=== PATIENT | male | born 1965 | race Caucasian/White ===

== ENCOUNTER 2018-08-04 14:25 | Outpatient (CLI) | payer BC ==
[~2018-08-04] VITALS: Ht 198.1 cm; Wt 136.1 kg
[~2018-08-04 14:25] MED LIST: AMLO5TAB9 PO; ATEN25TA PO; LISI20TA PO; METF-397 PO
== END 2018-08-04 15:30 | disposition home or self-care (01) ==
LOC: PREOP 14:25
PROVIDERS: ATTEND Surgery
DX: Z01.818 Encounter for other preprocedural examination (principal)

== ENCOUNTER 2018-08-10 08:27 | Day surgery (SDC) | payer BC, OTHER ==
[~2018-08-10] VITALS: Ht 198.1 cm; Wt 136.1 kg
[2018-08-10] MEDS ORDERED: NS IV 500 ML 500 ML ONE (08:28)
--- OUTSIDE RECORDS SUMMARY | 2018-08-10 08:29 | XMS REPORT ---
Author Author JAYNE GALLEGOS [facility] Address Unknown Care Team Providers Care Senior Bioinformatics Scientist Name Role Phone JAYNE GALLEGOS Unavailable PROBLEMS Type Condition ICD9-CM Code TUO90-PC Code Onset Dates Condition Status SNOMED Code Assessment Dental examination Z01.20 Mar, Active [id number] ALLERGIES Substance Reaction Event Type Date Status N.K.D.A. Unknown Non Drug Allergy Mar, Unknown SOCIAL HISTORY No smoking Hx information available PLAN OF CARE VITAL SIGNS Blood pressure systolic 124 mmHg 2016-03-28 Blood pressure diastolic 86 mmHg 2016-03-28 MEDICATIONS Medication Instructions Dosage Frequency Start Date End Date Duration Status Lisinopril Active RESULTS No Results PROCEDURES Procedure Date Ordered Related Diagnosis Body Site LTD ORAL EVALUATION - PROBLEM FOCUS Mar 28, 2016 IMMUNIZATIONS No Known Immunizations
[2018-08-10 08:40] VITALS: BP 122/75
[2018-08-10] MEDS ORDERED: NS IV 500 ML 500 ML IV PRN (08:51)
--- NOTE | 2018-08-10 08:52 | History & Physicial ---
History of Present Illness History of Present Illness Reason for visit/HPI to undergo screening colonoscopy. Date of Admission 08/10/18 Date Seen by a Provider: Aug 10, 2018 Time Seen by a Provider: 08:51 I consulted on this patient on 08/10/18 08:51 Attending Physician Shukri Mathews MD Admitting Physician Lacho Garcia MD Consult Allergies and Home Medications Allergies Coded Allergies: No Known Allergies (Unverified Allergy, 02/25/12) Home Medications Amlodipine Besylate 5 Mg Tablet, 5 MG PO DAILY, (Reported) Atenolol 25 Mg Tablet, PO DAILY, (Reported) Metformin HCl 500 Mg Tablet, 500 MG PO DAILY, (Reported) Patient Home Medication List Home Medication List Reviewed: Yes Past Bvfzagk-Bfkkyv-Ukfwqi Hx Patient Social History Marrital Status: Employed/Student: employed Type Used: Cigarettes Recent Foreign Travel: No Contact w/other who traveled: No Recent Hopitalizations: No Seasonal Allergies Seasonal Allergies: No Surgeries Yes (UMBILICAL HERNIA) Vasectomy Respiratory No Cardiovascular Yes Hypertension Neurological No Reproductive System Hx Reproductive Disorders: No Sexually Transmitted Disease: No HIV/AIDS: No Genitourinary No Gastrointestinal No Musculoskeletal No Endocrine History of Endocrine Disorders: Yes (BOARDERLINE-JUST STARTED METFORMIN) Endocrine Disorders: Diabetes, Non-Insulin dep HEENT History of HEENT Disorders: Yes (GLASSES) Loss of Vision: Bilateral Hearing Impairment: Denies Psychosocial History of Psychiatric Problem: No Integumentary History of Skin or Integumenta: No Blood Transfusions History of Blood Disorders: No Adverse Reaction to a Blood Tr: No (N/A) Review of Systems Constitutional: no symptoms reported EENTM: no symptoms reported Respiratory: no symptoms reported Cardiovascular: no symptoms reported Genitourinary: no symptoms reported Musculoskeletal: no symptoms reported Skin: no symptoms reported Psychiatric/Neurological: No Symptoms Reported Physical Exam Vital Signs Capillary Refill : Height, Weight, BMI Height: 6'6.00" Weight: 300lbs. 0.0oz. [id number]; 34.7 BMI Method: General Appearance: No Apparent Distress Respiratory: Lungs Clear Cardiovascular: Regular Rate, Rhythm Gastrointestinal: Non Tender, Soft Rectal: Deferred Neurologic/Psychiatric: Alert, Oriented x3 Skin: Warm/Dry Assessment/Plan Assessment and Plan gentleman in need of screening colonoscopy. Discussed in detail. Admission Diagnosis Admission Status: Other (Outpt Proc) SHUKRI MATHEWS MD Aug 10, 2018 08:52
--- NOTE | 2018-08-10 08:53 | Conscious Sedation/ASA ---
Conscious Sedation Pre-Proced Time 08:53 ASA Score 2 For ASA 3 and 4: Consider anesthesia and medical clearance. Also, for patients with a history of failed moderate sedation consider anesthesia. Airway Lungs Heart ASA score ASA 1: a normal healthy patient ASA 2: a patient with a mild systemic disease (mid diabetes, controlled hypertension, obesity ASA 3: a patient with a severe systemic disease that limits activity (angina , COPD, prior Myocardial infarction) ASA 4: a patient with an incapacitating disease that is a constant threat to life (CHF, renal failure) ASA 5: a moribund patient not expected to survive 24 hrs. (ruptured aneurysm) ASA 6: a declared brain patient whose organs are being harvested. For emergent operations, add the letter E after the classification Mallampati Classification Grade 1 Sedation Plan Discussed options with patient/fam The patient is an appropriate candidate to undergo the planned procedure, sedation, and anesthesia. The patient immediately re-assessed prior to indication. SHUKRI MATHEWS MD Aug 10, 2018 08:53
[2018-08-10] MEDS ORDERED: fentaNYL INJECTION 100 MCG/2 ML AMP IVP ONE (09:00)
[2018-08-10] MEDS ORDERED: MIDAZOLAM 2 MG/2 ML (VERSED) VIAL IVP ONE (09:00)
[2018-08-10] MEDS ORDERED: fentaNYL INJECTION 100 MCG/2 ML AMP ONE (09:03)
[2018-08-10] MEDS ORDERED: MIDAZOLAM 2 MG/2 ML (VERSED) VIAL ONE ×2 (09:04)
--- NOTE | 2018-08-10 09:24 | Endo Procedure Record ---
Endo Procedure Report Date of Procedure Last Colonoscopy: No Aug 10, 2018 Surgeon (s) SHKURI MATHEWS MD Post Procedure/Op Diagnosis very few sigmoid diverticulae Procedure Performed colonoscopy to cecum Description of Procedure Anesthesia Type: Conscious Sedation Specimen(s) collected/removed none Description of the Procedure Indication for the procedure: This gentleman came in for screening colonoscopy. He denied any family history of colon cancer or polyps. Informed consent was obtained after reviewing the procedure in detail. Description of the procedure: He was placed in left lateral rectus position and his vital signs were monitored. Conscious sedation was achieved using Versed and fentanyl. Digital rectal examination was unremarkable. The colonoscope was then introduced into the rectum and advanced all the way up to the cecum. The quality of bowel preparation was excellent. The scope was then withdrawn slowly and the mucosa examined in a systematic fashion. Findings: Very few sigmoid diverticulae. He tolerated the procedure well and was taken back to the nursing area in a stable condition. Impression: Screening colonoscopy. No polyps. No family history. Recommend repeating 10 years. Copy Copies To 1: DASHA PEÑALOZA MD, XAVIER M MD Aug 10, 2018 09:24
--- NOTE | 2018-08-10 09:26 | Discharge Inst-Simple/Standard ---
Discharge Inst-Standard Discharge Medications New, Converted or Re-Newed RX: Other Patient Instructions/Follow Up Plan of Care/Instructions/FU: repeat colonoscopy in 10 years Activity as Tolerated: Yes Discharge Diet: No Restrictions SHUKRI MATHEWS MD Aug 10, 2018 09:26
[2018-08-10 09:45] VITALS: BP 114/68
[2018-08-10 10:15] VITALS: BP 121/84
[2018-08-10 10:29] VITALS: BP 121/84
== END 2018-08-10 10:30 | disposition home or self-care (01) ==
LOC: ENDO 08:27
PROVIDERS: ATTEND Surgery
DX: Z12.11 Encounter for screening for malignant neoplasm of colon (principal); K57.30 Diverticulosis of large intestine without perforation or abscess without bleeding; E11.9 Type 2 diabetes mellitus without complications; I10 Essential (primary) hypertension; F17.210 Nicotine dependence, cigarettes, uncomplicated; Z79.899 Other long term (current) drug therapy; Z79.84 Long term (current) use of oral hypoglycemic drugs
CPT/HCPCS: 82962

== ENCOUNTER 2021-06-12 10:47 | Emergency (ER) | payer BC, OTHER ==
[~2021-06-12] VITALS: Ht 195 cm; Wt 140.0 kg
[~2021-06-12 10:47] MED LIST changes: +AMLO-250 PO; -AMLO5TAB9 PO
--- OUTSIDE RECORDS SUMMARY | 2021-06-12 10:53 | XMS REPORT | Clinical Summary ---
Author Author [facility] Organization [facility] Address Unknown Phone Unavailable Care Team Providers Care Mail Messenger Name Role Phone Lacho Garcia MD PCP Source Comments Some departments are not documenting in the electronic medical record. If you d o not see the information that you expected, contact Release of Information in [facility] Information Management department at [phone] for further assistan ce in locating additional records.[facility] Allergies Not on File Medications Not on file Active Problems Not on file Social History Date Tobacco Use Types Packs/Day Years Used Never Assessed Sex Assigned at Date Recorded Not on file Last Filed Vital Signs Not on file Plan of Treatment Health Maintenance Due Date Last Done Comments HIV SCREENING 10/13/1982 DTAP/TDAP VACCINES (1 - 10/13/1985 Tdap) HEPATITIS C SCREENING 10/13/1985 PHYSICAL (COMPREHENSIVE) 10/13/1985 EXAM COLORECTAL CANCER 10/13/2017 SCREENING SHINGLES RECOMBINANT 10/13/2017 VACCINE (1 of 2) INFLUENZA VACCINE 02/11/2021 Results Not on filefrom Last 3 Months Care Teams Start Date End Date Mail Messenger Relationship Specialty 02/09/10 Lacho Garcia MD PCP - General [address] [facility] [address] [place] [address]
[2021-06-12 11:04] LABS: BASOPHILS # (AUTO) 0.1 10^3/uL (0.0-0.1); BASOPHILS % (AUTO) 1 % (0-10); EOSINOPHILS # (AUTO) 0.1 10^3/uL (0.0-0.3); EOSINOPHILS % (AUTO) 1 % (0-10); HEMATOCRIT 49 % (40-54); LYMPHOCYTES % (AUTO) 27 % (12-44); MEAN CORPUSCULAR HEMOGLOBIN 30 pg (25-34); MEAN CORPUSCULAR HGB CONC 34 g/dL (32-36); MEAN CORPUSCULAR VOLUME 88 fL (80-99); MEAN PLATELET VOLUME 8.7 fL (9.0-12.2); MONOCYTES % (AUTO) 7 % (0-12); NEUTROPHILS # (AUTO) 9.4 10^3/uL (1.8-7.8); NEUTROPHILS % (AUTO) 64 % (42-75); PLATELET COUNT 368 10^3/uL (130-400); WHITE BLOOD COUNT 14.7 10^3/uL (4.3-11.0)
--- NOTE | 2021-06-12 11:04 | ED General ---
General Chief Complaint: Cardiac/General Problems Stated Complaint: DIZZY, SWEATY Source of Information: Patient Exam Limitations: No Limitations History of Present Illness Date Seen by Provider: Jun 12, 2021 Time Seen by Provider: 11:02 Initial Comments 55-year-old gentleman 1 pack/day smoker with diabetes on Metformin and hypertension on amlodipine and atenolol was at work at [employer] when he developed dizziness and diaphoresis. He then got into the ambulance and vomited. EMS gave 4 mg of Zofran and 324 mg of baby aspirin. He denies chest pain or shortness of breath. Primary care is Dr. Peñaloza. He states that he awakened this morning noticed himself to feel lightheaded and has been feeling p oorly since then. He felt fine last night. Timing/Duration: 4-6 Hours Severity: Moderate Associated Systoms: Denies Symptoms Allergies and Home Medications Allergies Coded Allergies: No Known Allergies (Unverified Allergy, Unknown, 08/10/18) Patient Home Medication List Home Medication List Reviewed: Yes Amlodipine Besylate (Amlodipine Besylate) 5 Mg Tablet, 5 MG PO DAILY, (Reported) Entered as Reported by: NICK VALENTIN on 08/04/18 1422 Atenolol (Atenolol) 25 Mg Tablet, PO DAILY, (Reported) Entered as Reported by: NICK VALENTIN on 08/04/18 1422 Metformin HCl (Metformin HCl) 500 Mg Tablet, 500 MG PO DAILY, (Reported) Entered as Reported by: NICK VALENTIN on 08/04/18 1422 Review of Systems Review of Systems Constitutional: see HPI EENTM: see HPI Respiratory: no symptoms reported Cardiovascular: no symptoms reported Genitourinary: no symptoms reported Musculoskeletal: see HPI, back pain Skin: no symptoms reported Psychiatric/Neurological: No Symptoms Reported Hematologic/Lymphatic: No Symptoms Reported Immunological/Allergic: no symptoms reported Past Xuznwsd-Rvypxr-Pvcqeu Hx Seasonal Allergies Seasonal Allergies: No Past Medical History Surgeries: Yes (UMBILICAL HERNIA) Vasectomy Respiratory: No Cardiac: Yes Hypertension Neurological: No Reproductive Disorders: No Sexually Transmitted Disease: No HIV/AIDS: No Genitourinary: No Gastrointestinal: No Musculoskeletal: No Endocrine: Yes (BOARDERLINE-JUST STARTED METFORMIN) Diabetes, Non-Insulin dep HEENT: Yes (GLASSES) Loss of Vision: Bilateral Hearing Impairment: Denies Cancer: No Psychosocial: No Integumentary: No Blood Disorders: No Adverse Reaction/Blood Tranf: No (N/A) Physical Exam Vital Signs Vital Signs - First Documented 06/12/21 10:49 Temp 35.1 Pulse 59 Resp 18 B/P (MAP) 152/93 (112) Pulse Ox 97 Capillary Refill : Height, Weight, BMI Height: 6'6.00" Weight: 300lbs. 0.0oz. [id number]; 34.7 BMI Method: General Appearance: No Apparent Distress, WD/WN Eyes: Bilateral Eye Normal Inspection, Bilateral Eye PERRL, Bilateral Eye EOMI Neck: Full Range of Motion, Normal Inspection Respiratory: No Accessory Muscle Use, No Respiratory Distress Cardiovascular: Regular Rate, Rhythm, Normal Peripheral Pulses Gastrointestinal: Normal Bowel Sounds, Non Tender, Soft Extremity: Normal Capillary Refill, Normal Inspection Neurologic/Psychiatric: Alert, Oriented x3 Skin: Normal Color, Warm/Dry Progress/Results/Core Measures Suspected Sepsis SIRS Temperature: Pulse: Respiratory Rate: Laboratory Tests 06/12/21 10:49: White Blood Count 14.7H Blood Pressure / Mean: Laboratory Tests 06/12/21 10:49: Creatinine 0.89, INR Comment 0.9, Platelet Count 368, Total Bilirubin 1.0 Results/Orders Lab Results Laboratory Tests Test 06/12/21 10:49 Range/Units White Blood Count 14.7 H 4.3-11.0 10^3/uL Red Blood Count 5.62 H 4.30-5.52 10^6/uL Hemoglobin 17.0 13.3-17.7 g/dL Hematocrit 49 40-54 % Mean Corpuscular Volume 88 80-99 fL Mean Corpuscular Hemoglobin 30 25-34 pg Mean Corpuscular Hemoglobin Concent 34 32-36 g/dL Red Cell Distribution Width 13.2 10.0-14.5 % Platelet Count 368 130-400 10^3/uL Mean Platelet Volume 8.7 L 9.0-12.2 fL Immature Granulocyte % (Auto) 1 % Neutrophils (%) (Auto) 64 42-75 % Lymphocytes (%) (Auto) 27 12-44 % Monocytes (%) (Auto) 7 0-12 % Eosinophils (%) (Auto) 1 0-10 % Basophils (%) (Auto) 1 0-10 % Neutrophils # (Auto) 9.4 H 1.8-7.8 10^3/uL Lymphocytes # (Auto) 4.0 1.0-4.0 10^3/uL Monocytes # (Auto) 1.0 0.0-1.0 10^3/uL Eosinophils # (Auto) 0.1 0.0-0.3 10^3/uL Basophils # (Auto) 0.1 0.0-0.1 10^3/uL Immature Granulocyte # (Auto) 0.1 0.0-0.1 10^3/uL Neutrophils % (Manual) 58 % Lymphocytes % (Manual) 31 % Monocytes % (Manual) 9 % Eosinophils % (Manual) 1 % Band Neutrophils 1 % Blood Morphology Comment NORMAL Prothrombin Time 12.7 12.2-14.7 SEC INR Comment 0.9 0.8-1.4 Activated Partial Thromboplast Time 28 24-35 SEC D-Dimer < 0.27 0.00-0.49 UG/ML Sodium Level 138 135-145 MMOL/L Potassium Level 4.2 3.6-5.0 MMOL/L Chloride Level 106 98-107 MMOL/L Carbon Dioxide Level 20 L 21-32 MMOL/L Anion Gap 12 5-14 MMOL/L Blood Urea Nitrogen 18 7-18 MG/DL Creatinine 0.89 0.60-1.30 MG/DL Estimat Glomerular Filtration Rate 89 BUN/Creatinine Ratio 20 Glucose Level 158 H 70-105 MG/DL Calcium Level 9.6 8.5-10.1 MG/DL Corrected Calcium 9.3 8.5-10.1 MG/DL Magnesium Level 1.9 1.6-2.4 MG/DL Total Bilirubin 1.0 0.1-1.0 MG/DL Aspartate Amino Transf (AST/SGOT) 24 5-34 U/L Alanine Aminotransferase (ALT/SGPT) 40 0-55 U/L Alkaline Phosphatase 69 40-136 U/L Myoglobin 27.6 10.0-92.0 NG/ML Troponin I < 0.028 <0.028 NG/ML C-Reactive Protein High Sensitivity 1.11 H 0.00-0.50 MG/DL B-Type Natriuretic Peptide 12.4 <100.0 PG/ML Total Protein 7.7 6.4-8.2 GM/DL Albumin 4.4 3.2-4.5 GM/DL Procalcitonin 0.06 <0.10 NG/ML My Orders Orders - ASHLEY GRADY APRN Cbc With Automated Diff (06/12/21 10:52) Magnesium (06/12/21 10:52) Chest 1 View, Ap/Pa Only (06/12/21 10:52) Ekg Tracing (06/12/21 10:52) Comprehensive Metabolic Panel (06/12/21 10:52) Myoglobin Serum (06/12/21 10:52) Protime With Inr (06/12/21 10:52) Partial Thromboplastin Time (06/12/21 10:52) O2 (06/12/21 10:52) Monitor-Rhythm Ecg Trace Only (06/12/21 10:52) Lipid Panel (06/13/21 06:00) Ed Iv/Invasive Line Start (06/12/21 10:52) BNP (06/12/21 10:52) Fibrin Degradation Products (06/12/21 10:52) Troponin I (06/12/21 10:52) Manual Differential (06/12/21 10:49) Procalcitonin (Pct) (06/12/21 11:10) Lactated Ringers (Lr 1000 Ml Iv Solution (06/12/21 11:15) Hs C Reactive Protein (06/12/21 11:10) Ct Angio Head/Neck (06/12/21 12:18) Meclizine Tablet (Antivert Tablet) (06/12/21 12:30) Scopolamine Patch (Transderm-Scop Patch) (06/12/21 12:45) Promethazine Injection (Phenergan Injec (06/12/21 12:45) Iohexol Injection (Omnipaque 350 Mg/Ml 1 (06/12/21 12:45) Received Contrast (Hold Metformin- Contr (06/12/21 12:45) Ns (Ivpb) (Sodium Chloride 0.9% Ivpb Bag (06/12/21 12:45) Medications Given in ED Current Medications Medications Dose Ordered Sig/Joni Route Start Time Stop Time Status Last Admin Dose Admin Iohexol 100 ml ONCE ONCE IV 06/12/21 12:45 06/12/21 12:46 DC 06/12/21 13:05 75 ML Meclizine HCl 50 mg ONCE ONCE PO 06/12/21 12:30 06/12/21 12:31 DC 06/12/21 12:26 50 MG Promethazine HCl 25 mg ONCE ONCE IVP 06/12/21 12:45 06/12/21 12:46 DC 06/12/21 12:46 25 MG Scopolamine 1.5 mg ONCE ONCE TD 06/12/21 12:45 06/12/21 12:46 DC 06/12/21 12:48 1.5 MG Sodium Chloride 100 ml ONCE ONCE IV 06/12/21 12:45 06/12/21 12:46 DC 06/12/21 13:05 80 ML Vital Signs/I&O 06/12/21 10:49 Temp 35.1 Pulse 59 Resp 18 B/P (MAP) 152/93 (112) Pulse Ox 97 Capillary Refill : Departure Communication (Admissions) NAME: SHARIFA CLIFFORD [facility] REC#: [id number] PT STATUS: REG ER : 1965 PHYSICIAN: ASHLEY GRADY APRN ADMIT DATE: 06/12/21/ER Draft Date of Exam:06/12/21 CT ANGIO HEAD/NECK PROCEDURE: CT angiography of the head and CT angiography of the neck with and without contrast. TECHNIQUE: Contiguous noncontrast images were obtained from the skull base through the vertex. After intravenous contrast administration, helical CT angiography of the neck was performed. Source data was reformatted into 3D MIP projections. Delayed postcontrast acquisition was also obtained. Auto Exposure Controls were utilized during the CT exam to meet ALARA standards for radiation dose reduction. INDICATION: Dizziness and vomiting. COMPARISON: None available. FINDINGS: NONCONTRAST HEAD: No intracranial hyperdense hemorrhage or space-occupying mass. No hydrocephalus or midline shift. Ayers-white matter differentiation is well preserved. No acute calvarial abnormality. Paranasal sinuses and mastoid air cells are clear. CTA NECK: Aortic arch is normal, and the great vessels of the aortic arch are widely patent. The bilateral common carotid arteries are patent without stenosis. There is no stenosis of the proximal internal carotid arteries per NASCET criteria. Cervical divisions of the internal carotid arteries are normal. The bilateral vertebral arteries are codominant and without stenosis or occlusion. Airway is widely patent, and there is no cervical lymphadenopathy. Lung apices are clear. CTA HEAD: The distal internal carotid arteries are patent without terminal aneurysm. The M1 and M2 divisions of the middle cerebral arteries are normal. Anterior cerebral arteries are normal. No anterior communicating artery aneurysm. Intracranial vertebral arteries are widely patent. Basilar artery is patent without terminal aneurysm. Posterior cerebral arteries are normal. Dural venous sinuses are patent. IMPRESSION: 1. No intracranial hemorrhage, large vessel occlusion, or saccular aneurysm. 2. Dural venous sinuses are patent. 3. No high-grade stenosis or occlusion within the major neck arteries. Specifically, the vertebrobasilar system is normal. Dictated on workstation # [id number] Dict: 06/12/21 1325 Trans: 06/12/21 1335 [id number] Interpreted by: JOSUÉ DOW MD Electronically signed by: [id number] EKG shows sinus rhythm at 56 a first-degree AV block with a IN interval of 216 ms no ectopy no ST segment changes. [id number] is unremarkable. Only finding is this incapacitating dizziness. H e puke just after taking the 2 meclizine so we gave him some Phenergan and scopolamine patch. The CT angio head neck failed to reveal any stenosis or evidence of posterior circulation occlusion. Impression Primary Impression: Nausea & vomiting Additional Impression: Vertigo Disposition: 01 HOME, SELF-CARE Condition: Stable Departure-Patient Inst. Decision time for Depature: 11:52 Referrals: DASHA PEÑALOZA MD (PCP) Primary Care Physician Patient Instructions: Vertigo ED Add. Discharge Instructions: 1. Call Dr. Peñaloza today to make an appointment for follow-up later this week. Return to ER for any concerns. Medication as directed. All discharge instructions reviewed with patient and/or family. Voiced understanding. Scripts Ondansetron (Ondansetron Odt) 8 Mg Tab.rapdis 8 MG PO Q6H PRN for NAUSEA/VOMITING, #14 TAB Prov: ASHLEY GRADY CERAMIC RESTORER 06/12/21 Meclizine HCl (Meclizine HCl) 25 Mg Tablet 50 MG PO Q8H PRN for DIZZINESS, #20 TAB Prov: ASHLEY GRADY CERAMIC RESTORER 06/12/21 Work/School Note: Work Release Form Date Seen in the Emergency Department: Jun 12, 2021 Return to Work: Jun 15, 2021 ASHLEY GRADY APRN Jun 12, 2021 11:04
[2021-06-12 11:11] LABS: ALBUMIN 4.4 GM/DL (3.2-4.5); POTASSIUM 4.2 MMOL/L (3.6-5.0)
[2021-06-12 11:12] LABS: CALCIUM 9.6 MG/DL (8.5-10.1)
[2021-06-12 11:13] LABS: TOTAL PROTEIN 7.7 GM/DL (6.4-8.2)
[2021-06-12 11:15] LABS: INR 0.9 (0.8-1.4); PROTHROMBIN TIME PATIENT 12.7 SEC (12.2-14.7)
[2021-06-12] MEDS ORDERED: LACTATED RINGERS 1,000 ML IV SCH (11:15)
[2021-06-12 11:17] LABS: CREATININE SERUM 0.89 MG/DL (0.60-1.30)
[2021-06-12 11:20] LABS: MAGNESIUM 1.9 MG/DL (1.6-2.4)
[2021-06-12 11:21] LABS: BAND NEUTROPHILS 1 %; EOSINOPHILS % (MANUAL) 1 %; LYMPHOCYTES % (MANUAL) 31 %; MONOCYTES % (MANUAL) 9 %; NEUTROPHILS % (MANUAL) 58 %; RBC MORPH NORMAL
--- NOTE | 2021-06-12 12:14 | Diagnostic Imaging Report ---
INDICATION: Dizziness, diaphoresis. COMPARISON: 12/06/2008. FINDINGS: Heart size and configuration are stable. Hilar and mediastinal contours are unremarkable. The lungs are clear. No failure, effusion, or pneumothorax. There has been no change. IMPRESSION: Stable unremarkable frontal radiographs of the chest. Dictated by: Dictated on workstation # [id number]
[2021-06-12] MEDS ORDERED: MECLIZINE 25 MG (ANTIVERT) TAB PO ONE (12:30)
[2021-06-12] MEDS ORDERED: IOHEXOL 350 MG/ML 100 ML (OMNIPAQUE 350) VIAL IV ONE (12:45)
[2021-06-12] MEDS ORDERED: SCOPOLAMINE 1.5 MG (TRANSDERM-SCOP) PATCH TD ONE (12:45)
[2021-06-12] MEDS ORDERED: HOLD METFORMIN - RECEIVED CONTRAST 20 ML VIAL IV SCH (12:45)
[2021-06-12] MEDS ORDERED: NS 100 ML (IVPB) BAG IV ONE (12:45)
[2021-06-12] MEDS ORDERED: PROMETHAZINE INJ 25 MG/ML (PHENERGAN) AMP IVP ONE (12:45)
--- NOTE | 2021-06-12 13:36 | Diagnostic Imaging Report ---
PROCEDURE: CT angiography of the head and CT angiography of the neck with and without contrast. TECHNIQUE: Contiguous noncontrast images were obtained from the skull base through the vertex. After intravenous contrast administration, helical CT angiography of the neck was performed. Source data was reformatted into 3D MIP projections. Delayed postcontrast acquisition was also obtained. Auto Exposure Controls were utilized during the CT exam to meet ALARA standards for radiation dose reduction. INDICATION: Dizziness and vomiting. COMPARISON: None available. FINDINGS: NONCONTRAST HEAD: No intracranial hyperdense hemorrhage or space-occupying mass. No hydrocephalus or midline shift. Ayers-white matter differentiation is well preserved. No acute calvarial abnormality. Paranasal sinuses and mastoid air cells are clear. CTA NECK: Aortic arch is normal, and the great vessels of the aortic arch are widely patent. The bilateral common carotid arteries are patent without stenosis. There is no stenosis of the proximal internal carotid arteries per NASCET criteria. Cervical divisions of the internal carotid arteries are normal. The bilateral vertebral arteries are codominant and without stenosis or occlusion. Airway is widely patent, and there is no cervical lymphadenopathy. Lung apices are clear. CTA HEAD: The distal internal carotid arteries are patent without terminal aneurysm. The M1 and M2 divisions of the middle cerebral arteries are normal. Anterior cerebral arteries are normal. No anterior communicating artery aneurysm. Intracranial vertebral arteries are widely patent. Basilar artery is patent without terminal aneurysm. Posterior cerebral arteries are normal. Dural venous sinuses are patent. IMPRESSION: 1. No intracranial hemorrhage, large vessel occlusion, or saccular aneurysm. 2. Dural venous sinuses are patent. 3. No high-grade stenosis or occlusion within the major neck arteries. Specifically, the vertebrobasilar system is normal. Dictated by: Dictated on workstation # [id number]
[2021-06-12] MEDS ORDERED: ONDA8TAB13 PO (13:39)
[2021-06-12] MEDS ORDERED: MECL-149 PO (13:39)
[2021-06-12 13:56] VITALS: BP 145/85
== END 2021-06-12 13:56 | disposition home or self-care (01) ==
LOC: EDUNIT# 10:47 → ER 10:49
DX: R42 Dizziness and giddiness (principal); I10 Essential (primary) hypertension; E11.9 Type 2 diabetes mellitus without complications; F17.210 Nicotine dependence, cigarettes, uncomplicated; Z79.84 Long term (current) use of oral hypoglycemic drugs
CPT/HCPCS: 36415; 70496; 70498; 71045; 80053; 83735; 83874; 83880; 84145; 84484; 85007; 85027; 85379; 85610; 85730; 86141; 93005; 93041

== ENCOUNTER 2022-09-04 12:32 | Outpatient (CLI) | payer BC ==
[~2022-09-04 12:32] MED LIST changes: +MECL-149 PO; +ONDA8TAB13 PO
== END 2022-09-04 12:55 ==
LOC: SLEEP 12:32
PROVIDERS: ATTEND Family Medicine
DX: G47.33 Obstructive sleep apnea (adult) (pediatric) (principal)
CPT/HCPCS: G0399